=== PATIENT | female | born 1985 | race Caucasian/White ===

== ENCOUNTER 2019-12-10 17:37 | Emergency (ER) | payer OTHER, SELFPAY ==
[2019-12-03 11:39] VITALS: BMI 33.4
[2019-12-10 17:38] VITALS: BP 162/92; PULSE 90; RESP 18; TEMP 36.6; O2SAT 98; BMI 30.1
--- NOTE | 2019-12-10 18:11 | ED.VIS.GEN ---
History of Present Illness Chief Complaint: Upper Extremity Injury Detail of Chief Complaint: Painful lump distal medial right arm history of prior blood clot and hyperc Informant: Patient Onset: Days - Severe pain past 3 days Context: Sudden Onset Timing: Continuous Quality: Pain Location: Distal medial right arm Current Severity: Mild Maximum Severity: Severe Worsened by: Movement and palpation Relieved by: Nothing Associated Symptoms: Swelling and history of hypercoagulable state with prior VTE Narrative: Patient a 34-year-old woman with prior history of VTE and hypercoagulable state who presents with pain and palpable lump distal medial right arm. Denies chest pain or shortness of breath. Does complain of swelling. She has no other complaints. Prior similar symptoms: Yes Recent Illness/Hospitalization: No - Past Medical History (1) VTE (venous thromboembolism) Status: Suspected (2) History of MTHFR mutation Status: Chronic (3) Trochanteric bursitis, left hip Status: Suspected Past Medical History - Allergies and Home Meds Allergies/Adverse Reactions: Allergies No Known Allergies Allergy (Verified 12/10/19 17:40) Primary Care Physician: Mitch Garcia DO [Primary Care Provider] - Prior records reviewed: Yes Lives: Spouse/ Significant Other, With Family Smoking Status: Never smoker Alcohol: None Drugs: None Review of Systems General: Denies: Chills, Fever Cardiovascular: Denies: Chest pain, Palpitations Respiratory: Denies: Dyspnea, Cough, Dyspnea on exertion Gastrointestinal: Denies: Nausea, Vomiting Musculoskeletal: Reports: Swelling, Extremity Pain. Denies: Myalgias, Arthralgias, Neck pain, Back pain, -, - Skin: Denies: Rash, Wounds Neurological: Denies: Weakness, Parasthesia, Numbness Hematologic: Denies: Easy bruising, Easy bleeding Physical Exam Vital Signs/Narrative: Vital Signs Temp Pulse Resp BP Pulse Ox 12/10/19 17:38 98 F 90 18 162/92 H 98 Inital Vital Signs reviewed: Yes General: Well nourished, Well developed, No Acute Distress Head: Normocephalic, Atraumatic Eyes: Perrl, EOMI. Negative for: Pale conjunctiva, Scleral icterus Cardiovascular: Regular rate, Regular rhythm Respiratory: No distress Extremities: No edema, Tenderness, - - Palpable cord distal medial right arm. There is slight swelling. Axillary, median, radial ulnar function intact.. Negative for: Nontender Skin: Normal color, No rash Neurological: Alert, Oriented x3, Cranial nerves II-XII grossly intact, Normal Strength, Normal Sensation Psychological: Normal affect Diagnostic/Tx/Re-eval - Medical Decision Making Prior history of VTE, history of hypercoagulable state and palpable cord she was treated with Eliquis. A venous duplex study of the right arm was ordered to be performed tomorrow as an outpatient. ED Disposition - Plan for ED Patient: Disposition: Home or Assisted Living Diagnosis: Phlebitis and thrombophlebitis Instructions: ED Peripheral Edema, Unilateral Referrals: Mitch Garcia DO [Primary Care Provider] - As Needed Additional Instructions: You will need to contact vascular lab for venous duplex study in the morning.
[2019-12-10] MEDS: APIXABAN 5 MG TABLET 10 MG PO (18:12)
== END 2019-12-10 18:23 | disposition home or self-care (01) ==
PROVIDERS: Emergency Provider Emergency Medicine
DX: I80.8 Phlebitis and thrombophlebitis of other sites (principal); E72.12 Methylenetetrahydrofolate reductase deficiency
CPT/HCPCS: 99283

== ENCOUNTER → 2019-12-11 10:14 | Outpatient (CLI) | payer OTHER, SELFPAY ==
[2019-12-10 17:38] VITALS: BMI 30.1
--- NOTE | 2019-12-11 11:02 | VDUE_ITS ---
Reason For Study: Rt arm pain Right Proximal Left Proximal Right jugular vein is spontaneous, widely Left subclavian vein is spontaneous, widely patent, phasic, with no intraluminal patent, phasic, with no intraluminal echogenicity noted. echogenicity noted. Right subclavian vein is spontaneous, widely patent, phasic, with no intraluminal echogenicity noted. Right Lower Arm Right radial vein is compressible. Right ulnar vein is compressible. Right Arm Right axillary vein is spontaneous, patent, phasic, competent, compressible and demonstrates augmentation. Right brachial vein is compressible. Right cephalic vein is compressible. Right basilic vein is compressible. Heterogeneous, vascular structure noted Rt medial antecub measuring 1.83cm x 2.31cm (area of severe pain). Interpretation Summary Deep veins of the right upper extremity are patent and compressible segmentally. There is no evidence of deep vein thrombosis. The superficial veins of the right upper extremity, the basilic and cephalic veins, are patent and compressible. There is no evidence of right upper extremity superficial thrombophlebitis involving the veins imaged. A heterogeneous, vascularized structure is noted in the right antecubital space, measuring 1.83 cm x 2.31 cm. Clinical correlation is advised. Ordering Physician: Tiago Johnston Referring Physician: Mitch Garcia Performed By: Rubia Stockton, RDCS, RVT ?
== END ==
PROVIDERS: Visit Provider Emergency Medicine
DX: M79.601 Pain in right arm (principal)
CPT/HCPCS: 93971

== ENCOUNTER 2019-12-11 10:58 | Emergency (ER) | payer OTHER, SELFPAY ==
[2019-12-10 17:38] VITALS: BMI 30.1
[2019-12-11 10:59] VITALS: BP 136/91; PULSE 93; RESP 15; TEMP 36.7; BMI 30.4
--- NOTE | 2019-12-11 11:51 | ED.DCSUM_ITS ---
History of Present Illness <Randy Ross - Last Filed: 12/11/19 12:07> Informant: Patient Occurred: Weeks Onset: Weeks - 1 week 1 week Context: Gradual Onset Timing: Continuous Quality of Pain: Aching Location: Right elbow Current Severity: Severe Maximum Severity: Severe Worsened by: Movement, palpation Relieved by: Nothing Associated Symptoms: Negative for: Parasthesia, Weakness, Loss of Funtion Narrative: 34-year-old female presents to the emergency department with right elbow pain. She was seen here yesterday. She has a history of DVT. She followed up this morning for an ultrasound as an outpatient which demonstrated a heterogeneous vascular structure right medial antecubital measuring 1.8 cm x 2.3 cm. She has been having this pain for about a week. Initially saw her doctor who put her on a Medrol pack because in addition to the elbow pain she was having hip pain. Symptoms have not improved. No redness or drainage but she does have swelling and pain of her elbow. No fevers. No vomiting or diarrhea. She is not currently anticoagulated but was given 1 dose of Eliquis in the emergency department last night. Tetanus Immunization: Unknown Prior similar symptoms: No Recent Illness/Hospitalization: No <Manuel Malin - Last Filed: 12/11/19 13:52> Chief Complaint: Cellulitis Past Medical History <Randy Ross - Last Filed: 12/11/19 12:07> Prior records reviewed: Yes Past Medical History: - - Clotting disorder, DVT Surgical History: no surgical history Lives: With Family Smoking Status: Never smoker <Laron Malinony - Last Filed: 12/11/19 13:52> - Allergies and Home Meds Allergies/Adverse Reactions: Allergies No Known Allergies Allergy (Verified 12/11/19 10:59) Primary Care Physician: Mitch Garcia DO [Primary Care Provider] - Review of Systems All systems negative except as indicated General: Denies: Chills, Fever Eyes: Denies: Visual changes - bilaterally, Blurred Vision - bilaterally, Diplopia ENT: Denies: Rhinorrhea, Sore throat Cardiovascular: Denies: Chest pain, Palpitations, Heart racing Respiratory: Denies: Dyspnea, Cough, Sputum Gastrointestinal: Denies: Abdominal pain, Nausea, Vomiting, Diarrhea Genitourinary: Denies: Dysuria, Hematuria, Frequency Musculoskeletal: Reports: Swelling, Extremity Pain. Denies: Myalgias, Arthralgias, Neck pain, Back pain Skin: Denies: Rash, Abscess, Abrasions, Wounds Neurological: Denies: Headache, Weakness, Parasthesia Hematologic: Denies: Easy bruising, Easy bleeding <Manuel Malin - Last Filed: 12/11/19 13:52> Physical Exam Vital Signs/Narrative: Vital Signs Temp Pulse Resp BP 12/11/19 10:59 98.0 F 93 15 136/91 H <Randy Ross - Last Filed: 12/11/19 12:07> Vital Signs/Narrative: Vital Signs Temp Pulse Resp BP 12/11/19 10:59 98.0 F 93 15 136/91 H Inital Vital Signs reviewed: Yes Right Elbow: - - Patient has swelling around the medial elbow on the right. There is no abscess there is no fluctuance or induration there is no palpable cord rash or bruising and she has normal range of motion actively at of her elbow. She has a normal radial pulse. She has no other tenderness noted of her right upper extremity. Prevocational/Rehabilitation Counselor strength was equal bilaterally General: Well nourished, Well developed Head: Normocephalic, Atraumatic Eyes: Perrl, EOMI ENT: No Trauma, Moist Mucous Membranes Neck: Nontender, Full ROM Cardiovascular: Regular rate, Regular rhythm, No murmurs Respiratory: No distress, CTA bilaterally, Chest nontender Abdomen: Soft, Nontender, Nondistended, Normal bowel sounds, No masses Back: Nontender Skin: Normal color, No rash, No Trauma Neurological: Alert, Oriented x3 Psychological: Normal affect, Normal Mood <Manuel Malin - Last Filed: 12/11/19 13:52> Diagnostic/Tx/Re-eval - Medical Decision Making Patient was seen with Manuel jacob PA agree with history physical as above patient has pain over the right medial epicondyles elbow for a few days seen recently sent today for duplex scan duplex scan per radiology shows about a 2 cm fullness that seems to have vascular supply arterial no DVT no other acute gross abnormalities there is a fullness to this area on the exam the antecubital fossa unremarkable elbow function is normal forearm wrist hand function normal pulses symmetric moving the hand without difficulty no long conversation the patient we discussed her going down to [facility] to be seen by Ortho and hand spoke with [facility] physician orthopedics relations manager Dr. Varela the other option is to have her seen in the office, on Friday discussed these options the patient she agrees to be seen Friday this time screening labs x-ray see the chart for full details <Randy Ross - Last Filed: 12/11/19 12:07> ED Disposition <Randy Ross - Last Filed: 12/11/19 12:07> <Manuel Malin - Last Filed: 12/11/19 13:52> - Plan for ED Patient: Disposition: Home or Assisted Living Diagnosis: Right elbow pain, Mass of elbow region Instructions: Arteriovenous Malformation (AVM) Prescriptions: Oxycodone HCl/Acetaminophen [Percocet 5/325] 1 tab PO Q6H PRN PRN 3 Days #12 tab PRN Reason: Pain Prescription Printed Referrals: Mitch Garcia DO [Primary Care Provider] - Jett Bahena MD [NON-STAFF] -
--- NOTE | 2019-12-11 12:22 | RAD_ITS ---
STUDY: X-RAY - PELVIS AND LEFT HIP REASON FOR EXAM: Female, 34 years old. PAIN IN LEFT HIP/PELVIS AREA. NO KNOWN INJURY. TECHNIQUE: 3 views of the pelvis and hip. COMPARISON: None. FINDINGS: There is a non-specific bowel gas pattern. Normal visualized soft tissue structures. Normal bilateral iliac wings, sacroiliac joints and visualized sacrum. Normal bilateral superior and inferior pubic rami. Normal pubic symphysis. Normal bilateral ischial tuberosities. Normal visualized femoral head. There is osteoarthritic spur formation of the acetabular rim. Normal hip joint. RAD/HIP, UNI W/ Pelvis 2-3 Views IMPRESSION: No fracture or malalignment. Electronically Signed: Darrion Leon MD ([place]) at 12:55 EDT , Service support ,
--- NOTE | 2019-12-11 12:31 | RAD_ITS ---
STUDY: X-RAY - RIGHT ELBOW REASON FOR EXAM: Female, 34 years old. PT WITH PAIN, SWELLING, RIGHT ELBOW INTO RIGHT HUMERUS WITH WARMTH RT UPPER ARM. NO KNOWN INJURY. TECHNIQUE: 3 view(s) of the elbow. COMPARISON: None. FINDINGS: Normal visualized humerus, radius and ulna. Normal radiocapitellar and ulnotrochlear articulations. There is nonspecific soft tissue swelling of the medial and posterior elbow. RAD/Elbow min 3 Views IMPRESSION: Soft tissue swelling. No fracture or malalignment. Electronically Signed: Darrion Leon MD ([place]) at 12:54 EDT , Service support ,
[2019-12-11 13:04] LABS: Absolute Lymphocyte Count 3.09 X10^3/uL (0.83-4.51); Absolute Neutrophil Count 6.1 X10^3/uL (2.0-7.7); Basophil# 0.09 X10^3/uL; Basophil% 0.9 % (0-1); Eosinophils% 3.8 % (0-5); Hematocrit 46.2 % (37-47); Lymphocyte # 3.09 X10^3/ul (4.0); Lymphocyte % 29.5 % (19-41); Mean Corp Hgb Conc 32.5 g/dL (32-36); Mean Corpuscular Hgb 29.2 pg (27.0-32.0); Mean Corpuscular Volume 89.9 fL (81-99); Mean Platelet Vol. 10.3 fl (6.2-12.0); Monocyte# 0.81 X10^3/uL; Monocyte% 7.7 % (0-10); NRBC Flagged by Analyzer 0.2 % (0-5); Neutrophil # 6.05 X10^3/uL (2.7-7.7); Neutrophil % 57.6 % (47-70); Platelet Count 200 K/mm3 (150-450); RBC Distribution Width CV 12.8 % (11.6-14.6); RBC Distribution Width SD 42.1 fl (35.1-43.9); Red Blood Count 5.14 M/mm3 (4.2-5.4); White Blood Count 10.5 K/mm3 (4.4-11.0)
[2019-12-11 13:09] LABS: Anion Gap 4 (5-15); BUN 6 mg/dL (7-18); BUN/Creat Ratio 7.4 RATIO (10-20); Calcium,Total 8.8 mg/dL (8.5-10.1); Chloride 106 mmol/L (98-107); Creatinine, Serum 0.81 mg/dL (0.55-1.02); EST Glomerular Filtration Rate 85 mL/min (>60); Est Glom Filt Rate - Afr Amer 102 mL/min (>60); Estimated Creatinine Clearance 96.86 ml/min; Glucose 76 mg/dL (74-106); Potassium 4.1 mmol/L (3.5-5.1); Sodium Level 138 mmol/L (136-145)
[2019-12-11 13:23] LABS: Erythrocyte Sedimentation Rate 15 mm/hr (0-20)
[2019-12-11 13:29] LABS: International Normalized Ratio 1.2
[2019-12-11 14:24] VITALS: BP 122/83; PULSE 76; RESP 16; O2SAT 100
== END 2019-12-11 14:42 | disposition home or self-care (01) ==
PROVIDERS: Emergency Provider Physician Assistant Medical
DX: M25.521 Pain in right elbow (principal); R22.31 Localized swelling, mass and lump, right upper limb; M25.552 Pain in left hip; Z86.718 Personal history of other venous thrombosis and embolism
CPT/HCPCS: 73080; 73502; 80048; 85025; 85610; 85652; 86140; 99285; A4216

== ENCOUNTER → 2019-12-15 16:06 | Outpatient (CLI) | payer OTHER, SELFPAY ==
[2019-12-11 10:59] VITALS: BMI 30.4
--- NOTE | 2019-12-15 16:41 | MRI_ITS ---
STUDY: MRI RIGHT ELBOW WITHOUT AND WITH CONTRAST REASON FOR EXAM: Female, 34 years old. rt elbow mass -- lump, marked with oil bead, posterior medial distal humerus x 2 weeks, pain redness, swelling, no fever TECHNIQUE: Standardized fat and water weighted pulse sequences were obtained in all 3 orthogonal planes prior to and following intravenous administration of 18 mL Dotarem. COMPARISON: X-ray December 11, 2019 FINDINGS: There is 2.0 x 2.0 cm enhancing lobular mass in the subcutaneous soft tissues on the ulnar aspect. Normal radio-capitellum articulation. Normal radial collateral ligamentous complex. Normal common extensor tendon. Normal ulnotrochlear articulation. Normal ulnar collateral ligamentous complex. Normal common flexor tendon. The cubital tunnel is normal, with a normal ulnar nerve. There is small joint effusion. Normal biceps tendon and distal insertion. Normal lacertus fibrosis. Normal brachialis musculotendinous insertion. Normal triceps tendon and teno-osseous insertion. Normal olecranon process. The visualized distal humerus, proximal radius, and ulna are normal. The visualized muscles of the distal arm and proximal forearm are normal. MRI/Upper Ext Joint Only W/WO Cont IMPRESSION: Solid enhancing mass with neoplasm versus enlarged lymph node in the subcutaneous soft tissues, corresponding to the palpable abnormality. No ligamentous or tendinous tear. Electronically Signed: Jitendra Dai MD at 20:22 EDT , Service support ,
== END ==
PROVIDERS: Referring Provider Orthopaedic Surgery Hand Surgery; Visit Provider Orthopaedic Surgery Hand Surgery
DX: R22.31 Localized swelling, mass and lump, right upper limb (principal)
CPT/HCPCS: 73223; A9575

== ENCOUNTER → 2020-01-25 12:35 | Outpatient (CLI) | payer OTHER, SELFPAY ==
[2020-01-25 15:03] LABS: HIV - WCH Non-Reactive (Nonreactive)
[2020-01-28 14:07] LABS: B. henselae IgG Negative titer (Neg:<1:320); B. henselae IgM Negative titer (Neg:<1:100); B. quintana IgG Negative titer (Neg:<1:320)
[2020-01-28 15:56] LABS: B. quintana IgM Negative titer (Neg:<1:100)
== END ==
DX: A28.1 Cat-scratch disease (principal)
CPT/HCPCS: 36415; 86611; 86703

== ENCOUNTER → 2021-02-05 14:22 | Outpatient (CLI) | payer OTHER, SELFPAY ==
--- NOTE | 2021-02-05 14:27 | RAD_ITS ---
STUDY: X-RAY - RIGHT ANKLE REASON FOR EXAM: Female, 35 years old. Lateral pain and soft tissue swelling following injury. TECHNIQUE: 3 view(s) of the ankle. COMPARISON: None. FINDINGS: Normal visualized distal tibia and fibula. Normal medial and lateral malleoli. Normal tibiotalar articulation and ankle mortise. Calcaneal spurs. The visualized subtalar, talonavicular, calcaneocuboid and tarsal articulations are normal. Soft tissue swelling overlying the lateral malleolus. RAD/Ankle min 3 Views IMPRESSION: Soft tissue swelling overlying the lateral malleolus. Plantar spurs. Electronically Signed: Alfredo Lynn MD at 14:58 EDT , Service support ,
== END ==
PROVIDERS: Referring Provider Physician Assistant Surgical; Visit Provider Physician Assistant Surgical
DX: S96.911A Strain of unspecified muscle and tendon at ankle and foot level, right foot, initial encounter (principal)
CPT/HCPCS: 73610

== ENCOUNTER → 2022-02-06 | Outpatient (CLI) | payer OTHER, SELFPAY ==
--- NOTE | 2022-02-06 12:05 | RAD_ITS ---
STUDY: X-RAY CHEST REASON FOR EXAM: Female, 36 years old. Persistent cough TECHNIQUE: PA and lateral views of the chest. COMPARISON: Comparison is made to prior study dated 09/17/2010. FINDINGS: The lungs are clear and expanded. Scattered calcified granulomas There is no demonstrated pleural abnormality. Normal size heart. Normal mediastinum and alex. Normal visualized pulmonary arteries. Normal visualized aortic arch and descending thoracic aorta. There are mild degenerative changes of the visualized thoracic spine. Normal visualized ribs, clavicles, and shoulders. There is no demonstrated abnormality of the visualized soft tissue structures of the upper abdomen. RAD/Chest PA and Lateral IMPRESSION: Stable examination. No acute abnormality is seen. Electronically Signed: Alfredo Lynn MD at 12:41 EDT ,
== END | disposition home or self-care (01) ==
LOC: RAD 12:01
PROVIDERS: PCP Family Medicine; Referring Provider Physician Assistant; Visit Provider Physician Assistant
DX: R05.9 Cough, unspecified (principal)
CPT/HCPCS: 71046

== ENCOUNTER → 2022-02-07 | Outpatient (CLI) | payer OTHER, SELFPAY | END | disposition home or self-care (01) | LOC: PAVLAB 09:02 | PROVIDERS: PCP Family Medicine; Referring Provider Internal Medicine Critical Care Medicine; Visit Provider Internal Medicine Critical Care Medicine | DX: R05.9 Cough, unspecified (principal) | CPT/HCPCS: 87633; 87798 ==

== ENCOUNTER → 2022-02-15 | Outpatient (CLI) | payer OTHER, SELFPAY ==
--- NOTE | 2022-02-16 07:24 | PFT ---
INTRODUCTION: The patient is a 36-year-old female that presents for pulmonary function studies secondary to a diagnosis of cough. Respiratory therapy reported good patient effort. Bronchodilators were used during testing. INTERPRETATION: Forced expiration spirometry demonstrates no evidence of a large airways obstructive ventilatory defect. There was no significant response to aerosolized bronchodilators. Spirograms are of good quality and plateau normally. The respiratory flow volume loop is normal. Body plethysmography was performed and reveals lung volumes to be within normal limits. Diffusing capacity by single breath CO is also within normal limits. IMPRESSION: Grossly normal pulmonary function studies.
== END | disposition home or self-care (01) ==
LOC: PSN 08:17
PROVIDERS: PCP Family Medicine; Visit Provider Internal Medicine Critical Care Medicine
DX: R05.9 Cough, unspecified (principal)
CPT/HCPCS: 94060; 94726; 94729

== ENCOUNTER → 2022-05-23 | Outpatient (CLI) | payer OTHER, SELFPAY ==
[2022-05-30 17:35] LABS: HPV Reflexed? NOT INDICATED
== END | disposition home or self-care (01) ==
LOC: LABSPEC 09:38
PROVIDERS: PCP Internal Medicine; Referring Provider Internal Medicine; Visit Provider Internal Medicine
DX: Z01.419 Encounter for gynecological examination (general) (routine) without abnormal findings (principal)
CPT/HCPCS: 88175; G0145

== ENCOUNTER → 2023-08-08 | Outpatient (CLI) | payer OTHER, SELFPAY ==
--- NOTE | 2023-08-08 10:01 | BI_ITS ---
MAMMOGRAPHY - BILATERAL SCREENING REASON FOR EXAM: Female, 38 years old. Routine annual screening examination. PERTINENT HISTORY: Non-contributory. TECHNIQUE: Digital bilateral breast norm (3D mammographic acquisition) in the CC and MLO projections. 2-D mediolateral oblique (MLO) and craniocaudad (CC) views of both breasts were obtained. CAD: Full Field Digital Mammography with Computer Added Detection was performed. COMPARISON: Comparison is made with prior study July 03, 2016. FINDINGS: Breast Composition: There are scattered areas of fibroglandular density. There are no dominant masses or suspicious calcifications. Stable small benign-appearing bilateral axillary lymph nodes. No other significant abnormalities are identified. There has been no significant change since the prior study. BI/SCRN MAMM (CAD)W/NORM BILAT IMPRESSION: Stable bilateral screening mammogram. Yearly follow-up mammogram recommended. (A) ASSESSMENT CATEGORY: BIRADS Category 2: Benign. A letter regarding these results will be sent to the patient by the facility within 30 days. Approximately 10% of breast cancers are not detected by mammography. A normal mammogram should not delay biopsy of a clinically suspicious abnormality. [id number] Electronically Signed: Alfredo Lynn MD at 12:05 EST ,
== END | disposition home or self-care (01) ==
LOC: OPBI 10:00
PROVIDERS: PCP Internal Medicine; Referring Provider Internal Medicine; Visit Provider Internal Medicine
DX: Z12.31 Encounter for screening mammogram for malignant neoplasm of breast (principal)
CPT/HCPCS: 77063; 77067

== ENCOUNTER → 2024-05-19 | Outpatient (CLI) | payer OTHER, SELFPAY ==
--- NOTE | 2024-05-19 11:21 | RAD_ITS ---
STUDY: X-RAY CHEST REASON FOR EXAM: Female, 38 years old. cough TECHNIQUE: PA and lateral views of the chest. COMPARISON: 02/06/2022 FINDINGS: The lungs are clear and expanded. There is no demonstrated pleural abnormality. Normal size heart. Normal mediastinum and alex. Normal visualized pulmonary arteries. Normal visualized aortic arch and descending thoracic aorta. There is a dextroscoliosis of the thoracic spine. Normal visualized ribs, clavicles, and shoulders. There is no demonstrated abnormality of the visualized soft tissue structures of the upper abdomen. RAD/Chest PA and Lateral IMPRESSION: Normal x-ray examination of the chest. Electronically Signed: Be Ayala MD at 13:35 EDT ,
== END | disposition home or self-care (01) ==
LOC: RAD 11:20
PROVIDERS: PCP Internal Medicine; Referring Provider Physician Assistant; Visit Provider Physician Assistant
DX: R05.8 Other specified cough (principal)
CPT/HCPCS: 71046

== ENCOUNTER → 2024-07-22 | Outpatient (CLI) | payer OTHER, SELFPAY | END | disposition home or self-care (01) | LOC: BIMLAB 08:32 | PROVIDERS: PCP Internal Medicine; Referring Provider Internal Medicine; Visit Provider Internal Medicine | DX: E66.9 Obesity, unspecified (principal) | CPT/HCPCS: 36415; 84443 ==

== ENCOUNTER → 2024-08-05 | Outpatient (CLI) | payer OTHER, SELFPAY ==
--- NOTE | 2024-08-05 07:18 | CT_ITS ---
STUDY: CT CHEST WITH CONTRAST REASON FOR EXAM: Female, 39 years old. Chronic cough RADIATION DOSAGE (If Supplied By Facility): CTDIvol = ( 16.26 ) mGy, DLP = ( 635.98 ) mGycm TECHNIQUE: Transaxial imaging was performed following intravenous administration of IV 100mL Isovue-370. Multiplanar coronal and sagittal images were reformatted. Individualized dose optimization techniques were used for this CT. COMPARISON: Comparison is made with prior chest radiograph dated May 19, 2024. FINDINGS: CHEST The lungs are normal. There is no demonstrated pleural abnormality. Normal heart and pericardium. Normal mediastinum. Normal hilar regions. Normal unenhanced pulmonary arteries. Normal aorta arch and descending thoracic aorta. Normal osseous structures. Study infiltration of the liver. CT/Chest WITH Contrast IMPRESSION: Normal enhanced CT chest. Electronically Signed: Alfredo Lynn MD at 9:32 EST ,
== END | disposition home or self-care (01) ==
LOC: CT 07:18
PROVIDERS: PCP Internal Medicine; Referring Provider Internal Medicine; Visit Provider Internal Medicine
DX: R05.3 Chronic cough (principal)
CPT/HCPCS: 71260; Q9967

== ENCOUNTER → 2024-08-20 | Outpatient (CLI) | payer OTHER, SELFPAY | END | disposition home or self-care (01) | LOC: OPBI 07:51 | PROVIDERS: PCP Internal Medicine; Referring Provider Internal Medicine; Visit Provider Internal Medicine | DX: Z12.31 Encounter for screening mammogram for malignant neoplasm of breast (principal) | CPT/HCPCS: 77063; 77067 ==